=== PATIENT | male | born 2000 | race Caucasian/White ===

== ENCOUNTER 2024-05-17 09:43 | Emergency (ER) | payer OTHER, SELFPAY ==
[2024-05-17 09:56] VITALS: BP 129/75; PULSE 85; RESP 16; TEMP 36.6; O2SAT 99; BMI 26.2
--- NOTE | 2024-05-17 10:07 | ED.GENADULT ---
HPI - General Adult General Chief complaint: Eye Problems Stated complaint: WC - Chemical in eye Ferric Chloride Time Seen by Provider: 05/17/24 10:06 History of Present Illness HPI narrative: Pt got dried Ferric Chloride in his right eye at work. Pt states he irrigated eye at work. Feels better but his company wants him checked out . 23-year-old man presenting to emergency department after chemical exposure to his right eye while at work. He is not experiencing pain no difficulty with vision at this point, however does note that is eyes water particularly when he just thinks about it. Following this exposure with ferric chloride does note copious eye irrigation. Was recommended to be seen here in the emergency department for further evaluation. Prior to my seeing Mr. Lucas, we have contacted poison Control. Recommendations are to verify pH of 7 and if this is the case no further interventions needed beyond treating as abrasions/symptomaticly. Related Data Home Medications ?Medication ?Instructions ?Recorded ?Confirmed No Known Home Medications 05/17/24 05/17/24 Allergies Allergy/AdvReac Type Severity Reaction Status Date / Time No Known Drug Allergies Allergy Verified 05/17/24 09:59 Review of Systems Status of ROS: Reports: 6 or more systems reviewed and unremarkable except as noted in History and below Exam Narrative: Exam Narrative: Pleasant. Tall. Bearded. No sign of injury to his face otherwise. No significant conjunctival injection. Pupils are equal and briskly reactive. Extraocular movements are full in appear to be without pain. eye does water readily. The right eye in particular appears to be without injury. I did place pH paper on initial exam and verifies a pH of [address] fluorescein dye and under Wood's lamp can appreciate a slight broader uptake in the inferior portion of the sclera. No foreign body or other injury noted with lid retraction/eversion. Const: Vital Signs, click to edit/add: Vital Signs - 24 hr 05/17/24 09:56 Temperature 97.9 F Pulse Rate [Right Pulse Oximeter] 85 Respiratory Rate 16 Blood Pressure [Ri ght Upper Arm] 129/75 Pulse Oximetry 99 Oxygen Delivery Me thod Room Air Documenting provider has reviewed patient's vital signs: yes Course Vital Signs Vital signs: Initial Vital Signs Temperature 97.9 F 05/17/24 09:56 Temperature Source Temporal Artery Scan 05/17/24 09:56 Pulse Rate 85 05/17/24 09:56 Respiratory Rate 16 05/17/24 09:56 Blood Pressure 129/75 05/17/24 09:56 Blood Pressure Mean 93 05/17/24 09:56 Pulse Oximetry 99 05/17/24 09:56 Oxygen Delivery Method Room Air 05/17/24 09:56 Vital Signs Temperature 97.9 F 05/17/24 09:56 Pulse Rate 85 05/17/24 09:56 Respiratory Rate 16 05/17/24 09:56 Blood Pressure 129/75 05/17/24 09:56 Pulse Oximetry 99 05/17/24 09:56 Oxygen Delivery Method Room Air 05/17/24 09:56 Temperature 97.9 F 05/17/24 09:56 Pulse Rate 85 05/17/24 09:56 Respiratory Rate 16 05/17/24 09:56 Blood Pressure 129/75 05/17/24 09:56 Pulse Oximetry 99 05/17/24 09:56 Oxygen Delivery Method Room Air 05/17/24 09:56 Medical Decision Making MDM Narrative Medical decision making narrative: Initial concern of potential erosion/abrasion. The pH has normalized. Is not terribly uncomfortable. I do not see other indication of injury. I think would treat with lubrication unless seems to be worsening. Work note written. Discussed tetanus status; updating with [employer] See patient discharge plan for further discussion Discharge Plan Discharge Clinical Impression: Chemical exposure of eye, Abrasion of sclera Patient Disposition: Home, Self-Care Condition: Stable Additional Instructions: Watch for marked increase in pain, surrounding eye redness and swelling and heat, purulence at drainage. If needed for soothing, can place generic eye ointment or refresh p.m. drops as needed throughout the day and before bed over the next few days Prescriptions: No Action No Known Home Medications Stand Alone Forms: [facility] Info Instructions
--- NOTE | 2024-05-17 10:18 | ED.NURSE ---
Contact poison control and stated to check the pH and if below 7.0, continue to irrigate. Treat like corneal abrasion if there are fam and abrasions. Dr. Amezquita aware.
[2024-05-17] MEDS: TETANUS/DIPHTH/PERTUSSIS 0.5 ML SYRINGE IM (10:40)
== END 2024-05-17 10:45 | disposition home or self-care (01) ==
PROVIDERS: Emergency Provider Family Medicine
DX: S05.01XA Injury of conjunctiva and corneal abrasion without foreign body, right eye, initial encounter (principal); Z23 Encounter for immunization; Z77.098 Contact with and (suspected) exposure to other hazardous, chiefly nonmedicinal, chemicals; Y99.0 Civilian activity done for income or pay
CPT/HCPCS: 65222; 90471; 90715; 99283; 99284; A9270